=== PATIENT | male | born 1940 | race Caucasian/White ===

== ENCOUNTER → 2018-10-18 | Outpatient (CLI) | payer MEDICARE, OTHER | END | disposition home or self-care (01) | LOC: PCVCCLINIC 10:00 | PROVIDERS: ATTEND Internal Medicine | DX: R94.31 Abnormal electrocardiogram [ECG] [EKG] (principal); R09.89 Other specified symptoms and signs involving the circulatory and respiratory systems; I10 Essential (primary) hypertension; E11.9 Type 2 diabetes mellitus without complications; E78.5 Hyperlipidemia, unspecified; Z88.8 Allergy status to other drugs, medicaments and biological substances; Z87.891 Personal history of nicotine dependence; Z79.899 Other long term (current) drug therapy; Z79.82 Long term (current) use of aspirin | CPT/HCPCS: 36415; 80061; 93005; G0463 ==

== ENCOUNTER → 2018-12-18 | Outpatient (CLI) | payer MEDICARE, OTHER ==
[~2018-12-18] MED LIST: REGADENOSON 0.4 MG/5 ML DISP.SYRIN. IV ONE
--- NOTE | 2018-12-18 08:53 | PCVCIMAG ---
APPROVED REPORT Study performed: 12/18/2018 08:03:00 EXAM: Comprehensive 2D, Doppler, and color-flow Echocardiogram Patient Location: Echo lab Status: routine BSA: 2.15 HR: 75 bpmBP: 112/80 mmHg Rhythm: NSR Other Information Study Quality: Adequate Risk Factors: Cardiac Risk Factors: HTN, Hyperlipidemia, DM Indications Abnormal ECG 2D Dimensions IVSd: 13.85 (7-11mm)LVOT Diam: 20.13 (18-24mm) LVDd: 42.62 mm PWd: 10.43 (7-11mm)Ascending Ao: 33.94 (22-36mm) LVDs: 29.14 (25-40mm) Left Atrium: 41.18 (27-40mm) Aortic Root: 30.79 mm LV Single Plane 4CH: 50.90 % LV Single Plane 2CH: 45.16 % Biplane EF: 50.1 % Volumes Left Atrial Volume (Systole) Single Plane 4CH: 47.24 mLSingle Plane 2CH: 45.92 mL LA ESV Index: 23.00 mL/m2 Aortic Valve AoV Peak Ricardo.: 2.60 m/s AO Peak Gr.: 27.12 mmHgLVOT Max P.12 mmHg AO Mean Gr.: 15.24 mmHgLVOT Mean P.28 mmHg AO V2 Mean: 1.85 m/sLVOT Max V: 1.12 m/s AO V2 VTI: 68.60 cmLVOT Mean V: 0.86 m/s DEANA (VTI): 1.29 [id number] V1 VTI: 27.83 cm DEANA Vmax: 1.36 cm2 SV (LVOT): 88.51 mL Mitral Valve E/A Ratio: 0.7 MV Decel. Time: 232.07 ms MV E Max Ricardo.: 0.70 m/s MV A Ricardo.: 0.96 m/s IVRT: 110.73 ms TDI E/Lateral E': 10.00E/Medial E': 7.00 Medial E' Ricardo.: 0.10 m/s Lateral E' Ricardo.: 0.07 m/s Pulmonary Valve PV Peak Gr.: 2.30 mmHg Pulmonary Vein P Vein S: 0.50 m/sP Vein A: 0.46 m/s P Vein D: 0.43 m/sP Vein A Dur.: 103.8 msec P Vein S/D Ratio: 1.16 Tricuspid Valve TR Peak Ricardo.: 2.58 m/s TR Peak Gr.: 26.60 mmHg Left Ventricle The left ventricle is normal size. There is normal LV segmental wall motion. There is normal left ventricular wall thickness. Left ventricular systolic function is normal. The left ventricular ejection fraction is within the normal range. LVEF 50%. Mild diastolic dysfunction is present (impaired relaxation pattern). Right Ventricle The right ventricle is normal size. The right ventricular systolic function is normal. Atria The left atrium size is normal. The right atrium size is normal. Aortic Valve Aortic valve leaflets are moderately thickened; mild stenosis Trace aortic regurgitation. There is mild valvular aortic stenosis. Calculated aortic valve area is 1.3 cm2 with maximum pressure gradient of 27 mmHg and mean pressure gradient of 15 mmHg. Mitral Valve Mild mitral annular calcification Trace to mild mitral regurgitation. No evidence of mitral valve stenosis. Tricuspid Valve The tricuspid valve is normal in structure. Trace tricuspid regurgitation. Pulmonary artery pressure is 35 mmHg. Pulmonic Valve The pulmonary valve is normal in structure. Trace pulmonic regurgitation. Great Vessels The aortic root is normal in size. IVC is normal in size and collapses >50% with inspiration. Pericardium There is no pericardial effusion. <Conclusion> Left ventricular systolic function is normal. There is normal LV segmental wall motion. LVEF 50%. Mild diastolic dysfunction Aortic valve leaflets are moderately thickened; mild stenosis Calculated aortic valve area is 1.3 cm2 with maximum pressure gradient of 27 mmHg and mean pressure gradient of 15 mmHg. Mild mitral annular calcification. Trace to mild mitral regurgitation. Trace tricuspid regurgitation. Pulmonary artery pressure of 35 mmHg. There is no pericardial effusion.
--- NOTE | 2018-12-18 08:56 | PCVCIMAG ---
APPROVED REPORT Indications Bruit Risk Factors Hyperlipidemia Doppler Spectral Velocity Analysis PSV / EDVPSV / EDV ECA (R) 62 / 8 cm/sECA (L) 69 / 9 cm/s dICA (R) 54 / 19 cm/sdICA (L) 60 / 22 cm/s Heather (R) 56 / 16 cm/smICA (L) 72 / 23 cm/s pICA (R) 65 / 14 cm/spICA (L) 65 / 17 cm/s Bulb (R) 44 / 12 cm/sBulb (L) 57 / 12 cm/s dCCA (R) 65 / 13 cm/sdCCA (L) 77 / 18 cm/s mCCA (R) 77 / 13 cm/smCCA (L) 98 / 25 cm/s Vert (R) 52 / 18 cm/sVert (L) 34 / 0 cm/s ICA/CCA 0.85ICA/CCA 0.73 Basic Measurements Blood Pressure: Pulses: Right Left RightLeft Brachial(Sitting) 110/07ojPv572/80mmHgTemporal Real Time B-Mode Imaging Vert. (R)AntegradeVert. (L)Antegrade Findings The right carotid bulb has mild plaque. The right proximal internal carotid artery shows no significant stenosis. The right common carotid artery shows no significant stenosis. The right external carotid artery shows no significant stenosis. The left carotid bulb has moderate calcified plaque. The left proximal internal carotid artery shows <40% stenosis. The left common carotid artery shows no significant stenosis. The left external carotid artery shows no significant stenosis. Conclusion 1. Right internal carotid artery without significant stenosis. 2. Left internal carotid artery stenosis (<40%). 3. Antegrade vertebral flow.
--- NOTE | 2018-12-19 09:07 | PCVCIMAG ---
APPROVED REPORT Imaging Protocol: Rest Tc-99m/Stress Tc-99m 1 day Study performed: 12/18/2018 09:40:31 Indication: Dyspnea, Abnormal EKG Patient Location: Out-Patient Stress Nurse: Pilar Toledo RN, Maye Jim RN MS Tech:Adrienne Sánchezgill [facility] Ht: 5 ft 10 in Wt: 218 lbs BSA: 2.17 m2 HR: 69 bpm BP: 128/63 mmHg BMI: 31.2 Rhythm: Sinus Rhythm, nonspecific ST-T abnormalities, 1st degree AV block Medical History Medical History: Hyperlipidemia, HTN, CVD, Diabetes, Former Smoker Medications: Amlodipine, ASA, HCTZ, Simvastatin, Micardis Allergies: Ibuprofen Cardiac Risk Factors: Age Pretest Chest Pain Characteristics: No chest pain Exercise History: Sedentary Resting Data Rest SPECT myocardial perfusion imaging was performed in supine position 45 minutes following the intravenous injection of 10 mCi of Tc-99m Sestamibi. Time of rest injection: 0930 Date: 12/18/2018 Administration Route: IV Administration Site: Right AC Pharmacologic Stress Pharmacologic stress test was performed by injecting Regadenoson 0.4 mg IV push over 10-15 seconds immediately followed by the intravenous injection of 33 mCi of Tc-99m Sestamibi. Time of stress injection: 1100 Date: 12/18/2018 Administration Route: IV Administration Site: Right AC Gated Stress SPECT was performed 12 minutes after stress injection. The images were gated to evaluate regional wall motion and calculate left ventricular ejection fraction. Stress Test Details Stress Test: Pharmacologic stress testing performed using 0.4 mg of regadenoson per 5 mL given IV over 10 seconds. Reason for pharmacologic stress test: physical limitation. HRMax Heart Rate (APMHR): 141 bpm Resting HR: 69 bpmTarget HR (85% APMHR): 119 bpm Max HR Achieved: 92 bpm % of APMHR: 65 Recovery HR: 83 bpm BP Resting BP: 128/63 mmHg Max BP: 101/56 mmHg Recovery BP: 107/59 mmHg ECG Resting ECG: Sinus Rhythm, nonspecific ST-T abnormalities, 1st degree AV block Stress ECG: Sinus Rhythm, nonspecific ST-T abnormalities, 1st degree AV block ST Change: None Maximum ST Deviation: 0 mm Arrhythmia: VPC and APC's Recovery ECG: Sinus Rhythm, nonspecific ST-T abnormalities, 1st degree AV block Recovery ST Change: None Recovery ST Deviation: 0 mm Recovery Arrhythmia: None Clinical Reason for Termination: Completed protocol Stress Symptoms: Chest pressure Symptoms resolved during recovery. Stress ECG Conclusion ECG: Non-ischemic Clinical: Non-ischemic Study Quality Study: Good Artifact: Mild Diaphragmatic artifact Study Data Post stress, the left ventricular ejection was 61%.. SSS: 2 SRS: 10 SDS: 0 TID = 0.93. Perfusion No evidence of stress induced ischemia or prior myocardial infarction. Wall Motion Normal left ventricular size and function with no regional wall motion abnormalities. Nuclear Conclusion No evidence of stress induced ischemia or prior myocardial infarction. Normal left ventricular size and function with no regional wall motion abnormalities. Post stress, the left ventricular ejection was 61%. No prior study available for comparison. Interpreted by: Miguel Willett MD Electronically Approved: 12/18/2018 17:34:32 <Conclusion> ECG: Non-ischemic Clinical: Non-ischemic
== END | disposition home or self-care (01) ==
LOC: PCVCIMAG 08:06
PROVIDERS: ATTEND Internal Medicine
DX: I08.0 Rheumatic disorders of both mitral and aortic valves (principal); R94.31 Abnormal electrocardiogram [ECG] [EKG]; I65.23 Occlusion and stenosis of bilateral carotid arteries; R06.00 Dyspnea, unspecified; E78.5 Hyperlipidemia, unspecified; I10 Essential (primary) hypertension
CPT/HCPCS: 78452; 93017; 93306; 93880; A9500; J2785